=== PATIENT | female | born 1985 | race Caucasian/White ===

== ENCOUNTER 2016-07-25 16:05 | Emergency (ER) | payer MEDICAID ==
[~2016-07-25] VITALS: Ht 157.5 cm; Wt 82.6 kg
[2016-07-25 16:32] VITALS: BP 130/87
--- NOTE | 2016-07-25 16:43 | NUR ---
pt taken to bed 5
--- NOTE | 2016-07-25 16:55 | NUR ---
31/F presents to ED for evaluation of cough and congestion x2 days. Patient also co N/V/D. Pt reports being approximately 8 weeks . G-2 P-1. Patient is AOX4, ambulatory with steady gait. VSS.
[2016-07-25] MEDS ORDERED: NACL 0.9% 1,000 ML IV ONE (17:00)
--- NOTE | 2016-07-25 17:16 | NUR ---
PATIENT TAKEN TO US VIA W/C.
--- NOTE | 2016-07-25 17:35 | NUR ---
Patient returned from US.
[2016-07-25 18:32] VITALS: BP 130/87
--- NOTE | 2016-07-25 18:33 | NUR ---
Patient discharged with v/s stable. Written and verbal after care instructions given and explained. Patient verbalized understanding. Ambulatory with steady gait. All questions addressed prior to discharge. Advised to follow up with PMD.
--- NOTE | 2016-07-25 18:33 | NUR ---
Chart checked and completed. The patient's care was reviewed and supervised by Zachariah Maharaj RN.
== END 2016-07-25 18:33 | disposition home or self-care (01) ==
LOC: MED 16:05
DX: O46.91 Antepartum hemorrhage, unspecified, first trimester (principal); O99.511 Diseases of the respiratory system complicating pregnancy, first trimester; J06.9 Acute upper respiratory infection, unspecified; Z3A.08 8 weeks gestation of pregnancy
CPT/HCPCS: 36415; 76817; 81001; 81025; 84702; 85025; 86900; 86901; 96360; 99285; J7030

== ENCOUNTER 2016-07-26 17:27 | Emergency (ER) | payer MEDICAID ==
[~2016-07-26] VITALS: Ht 157.5 cm; Wt 82.6 kg
[2016-07-26 18:19] VITALS: BP 130/74
--- NOTE | 2016-07-26 21:17 | NUR ---
AMBULATED TO ER BED 3
--- NOTE | 2016-07-26 21:21 | NUR ---
PT IS 6WKS IUP-- A2 HEAVY VAGINAL BLEEDING TODAY 11AM, NOTED SAC EXPEL---CRAMPING PAIN CHAGES PADS EVERY 1HR--NOT SATURATED
--- NOTE | 2016-07-26 21:29 | NUR ---
Patient being evaluated by BY DR. PAIZ at bedside.
[2016-07-26 21:39] VITALS: BP 125/71
--- NOTE | 2016-07-26 21:40 | NUR ---
Patient discharged with v/s stable BY DR. PAIZ. Written and verbal after care instructions given and explained. Patient verbalized understanding. Ambulatory with steady gait. All questions addressed prior to discharge. Advised to follow up with PMD.
== END 2016-07-26 21:40 | disposition home or self-care (01) ==
LOC: MED 17:32
DX: O03.9 Complete or unspecified spontaneous abortion without complication (principal); O26.891 Other specified pregnancy related conditions, first trimester; R30.0 Dysuria; Z3A.01 Less than 8 weeks gestation of pregnancy

== ENCOUNTER 2016-12-17 21:46 | Emergency (ER) | payer MEDICAID, OTHER ==
[~2016-12-17] VITALS: Ht 160 cm; Wt 81.4 kg
[2016-12-17 21:58] VITALS: BP 124/71
--- NOTE | 2016-12-17 22:28 | NUR ---
PT RETURN FROM ULTRASOUND
--- NOTE | 2016-12-17 22:34 | NUR ---
PHLEB DRAWING LABS
[2016-12-17 22:44] LABS: BASOPHILS # (AUTO) 0.1 K/uL (0.00-0.22); BASOPHILS % (AUTO) 1.9 % (0.0-2.0); EOSINOPHILS # (AUTO) 0.3 K/uL (0-0.4); EOSINOPHILS % (AUTO) 3.4 % (0.0-4.0); HEMATOCRIT 37.9 % (36-48); HEMOGLOBIN 12.3 g/dL (12.0-16.0); LYMPHOCYTES % (AUTO) 26.1 % (20.5-51.1); MEAN CORPUSCULAR HEMOGLOBIN 28 pg (27-31); MEAN CORPUSCULAR HGB CONC 32 g/dL (33-37); MEAN CORPUSCULAR VOLUME 88 fL (80-94); MONOCYTES # (AUTO) 0.6 K/uL (0.8-1.0); MONOCYTES % (AUTO) 7.6 % (1.7-9.3); NEUTROPHILS # (AUTO) 4.9 K/uL (1.8-7.7); PLATELET COUNT (AUTO) 236 K/uL (140-450); RED BLOOD CELL COUNT(AUTO) 4.33 MIL/uL (4.20-5.40); RED CELL DISTRIBUTION WIDTH 13.5 % (11.6-13.7); WHITE BLOOD COUNT (AUTO) 7.9 K/uL (4.8-10.8)
[2016-12-17 23:03] LABS: ALBUMIN 2.8 g/dL (3.4-5.0); CALCIUM 8.3 mg/dL (8.5-10.1); CARBON DIOXIDE 22.6 mmol/L (21-32); CREATININE 0.6 mg/dL (0.6-1.3); POTASSIUM 3.6 mmol/L (3.5-5.1); TOTAL BILIRUBIN 0.1 mg/dL (0.0-1.0); TOTAL PROTEIN, SERUM 6.8 g/dL (6.4-8.2)
--- NOTE | 2016-12-18 00:28 | NUR ---
PT TAKEN TO BED 6
--- NOTE | 2016-12-18 00:30 | NUR ---
31Y F C/O VAG BLEED SINCE THIS PM, 19 WEEKS . HAS HAD 1 MISCARRIAGE AND ONE FULL TERM DELIVERY. PT DENIES ANY N/V/D, SOB, CP AT THE MOMENT. BREATHING IS UNLABORED AND CLEAR BILAT. MED HX: NONE
[2016-12-18 00:47] VITALS: BP 124/71
--- NOTE | 2016-12-18 01:37 | NUR ---
PATIENT LEFT WITHOUT BEING SEEN BY DR. BEAN. NO FURTHER CARE PROVIDED FOR PATIENT.
== END 2016-12-18 01:37 | disposition left against medical advice (07) ==
LOC: MED 21:46
DX: O20.9 Hemorrhage in early pregnancy, unspecified (principal); Z53.21 Procedure and treatment not carried out due to patient leaving prior to being seen by health care provider; Z3A.18 18 weeks gestation of pregnancy
CPT/HCPCS: 36415; 76805; 80053; 84702; 85025; 99281